=== PATIENT | male | born 1985 | race Caucasian/White ===

== ENCOUNTER 2017-06-26 08:31 | Emergency (ER) | END 2017-06-26 12:50 | disposition home or self-care (01) ==

== ENCOUNTER 2018-08-12 08:17 | Inpatient (IN) | payer MEDICAID ==
[2018-08-12] VITALS (19 sets, daily range): BP systolic 104–134; BP diastolic 58–89; PULSE 67–98; RESP 16–25; Ht 167.6 cm; Wt 82.3 kg
[~2018-08-12] VITALS: Ht 167.6 cm; Wt 82.3 kg
[~2018-08-12 08:17] MED LIST: BEN25 PO; HC30CR25 TOP; NO MEDS; PRED20TA PO
[2018-08-12] MEDS ORDERED: KETOROLAC 30 MG INJ IV STA (09:20)
[2018-08-12] MEDS ORDERED: ONDANSETRON 4 MG INJ IV STA (09:20)
[2018-08-12] MEDS ORDERED: FAMOTIDINE 20 MG TAB PO STA (09:20)
--- NOTE | 2018-08-12 09:31 | ERD ---
ER Documentation Chief Complaint Chief Complaint RIGHT LOWER ABD PAIN, VOMITING, ONSET LAST NIGHT HPI 33-year-old male with no significant past medical history or surgical history who presents with complaint of right lower quadrant abdominal pain since 10 PM last night. Abdominal pain associated with several episodes of nonbilious nonbloody vomiting. Abdominal pain localized to right lower quadrant without radiation. Symptoms not worsened or improved with any thing. Reporting anorexia. Patient has not tried any [id number] medications. He ate his typical meal and denies any sick contacts or recent travel. He further denies diarrhea, fever, chills, cough or URI type symptoms. ROS All systems reviewed and are negative except as per history of present illness. Medications Home Meds Active Scripts Diphenhydramine Hcl* (Benadryl*) 25 Mg Cap, 25 MG PO Q6, #30 CAP Prov:TAN MENDOSA PA-C 06/26/17 Hydrocortisone* Topical (Hydrocortisone* Topical) 2.5%-28.3 Gm Cream..g., 1 APPLIC TOP BID, #1 TUB Prov:TAN MENDOSA PA-C 06/26/17 Prednisone* (Prednisone*) 20 Mg Tab, 40 MG PO DAILY for 5 Days, #10 TAB Prov:TAN MENDOSA PA-C 06/26/17 Reported Medications [None] No Conflict Check 01/31/12 [No Meds] No Conflict Check 09/16/10 Allergies Allergies: Coded Allergies: No Known Allergies (Verified Allergy, Mild, 06/26/17) PMhx/Soc History of Surgery: No Anesthesia Reaction: No Hx Neurological Disorder: No Hx Respiratory Disorders: No Hx Cardiac Disorders: No Hx Psychiatric Problems: No Hx Miscellaneous Medical Probl: Yes (FATTY LIVER) Hx Alcohol Use: No Hx Substance Use: No Hx Tobacco Use: No Physical Exam Vitals Vital Signs Date Temp Pulse Resp B/P (MAP) Pulse Ox O2 O2 Flow FiO2 Time Delivery Rate 08/12/18 98.3 71 17 145/76 100 08:23 (99) Physical Exam Const: No acute distress Neck: Full range of motion. No meningismus. Resp: Clear to auscultation bilaterally Cardio: Regular rate and rhythm, no murmurs Abd: Soft, tenderness to deep palpation to RLQ, no rebound or guarding Skin: No petechiae or rashes Back: No midline or flank tenderness Ext: No cyanosis, or edema Neur: Awake and alert Psych: Normal Mood and Affect Result Diagram: 08/12/1835 08/12/18 0935 Results 24 hrs Laboratory Tests Test 08/12/18 09:35 White Blood Count 13.4 10^3/ul Red Blood Count 6.33 10^6/ul Hemoglobin 16.2 g/dl Hematocrit 49.6 % Mean Corpuscular Volume 78.4 fl Mean Corpuscular Hemoglobin 25.6 pg Mean Corpuscular Hemoglobin Concent 32.7 g/dl Red Cell Distribution Width 13.4 % Platelet Count 308 10^3/UL Mean Platelet Volume 10.5 fl Immature Granulocytes % 0.400 % Neutrophils % 81.3 % Lymphocytes % 10.5 % Monocytes % 7.2 % Eosinophils % 0.3 % Basophils % 0.3 % Nucleated Red Blood Cells % 0.0 /100WBC Immature Granulocytes # 0.050 10^3/ul Neutrophils # 10.9 10^3/ul Lymphocytes # 1.4 10^3/ul Monocytes # 1.0 10^3/ul Eosinophils # 0.0 10^3/ul Basophils # 0.0 10^3/ul Nucleated Red Blood Cells # 0.0 10^3/ul Urine Color YELLOW Urine Clarity CLEAR Urine pH 7.0 Urine Specific [place] 1.010 Urine Ketones NEGATIVE mg/dL Urine Nitrite NEGATIVE mg/dL Urine Bilirubin NEGATIVE mg/dL Urine Urobilinogen NEGATIVE mg/dL Urine Leukocyte Esterase NEGATIVE Janis/ul Urine Hemoglobin NEGATIVE mg/dL Urine Glucose NEGATIVE mg/dL Urine Total Protein NEGATIVE mg/dl Sodium Level 141 mmol/L Potassium Level 3.8 mmol/L Chloride Level 103 mmol/L Carbon Dioxide Level 27 mmol/L Anion Gap 11 Blood Urea Nitrogen 15 mg/dl Creatinine 0.78 mg/dl Est Glomerular Filtrat Rate mL/min > 60 mL/min Glucose Level 93 mg/dl Calcium Level 9.6 mg/dl Total Bilirubin 0.5 mg/dl Direct Bilirubin 0.00 mg/dl Indirect Bilirubin 0.5 mg/dl Aspartate Amino Transf (AST/SGOT) 36 IU/L Alanine Aminotransferase (ALT/SGPT) 55 IU/L Alkaline Phosphatase 91 IU/L Total Protein 8.2 g/dl Albumin 4.7 g/dl Globulin 3.50 g/dl Albumin/Globulin Ratio 1.34 Lipase 51 U/L Current Medications Medications Dose Sig/Lyle Start Time Status Last (Trade) Ordered Route PRN Stop Time Admin Dose Reason Admin Ondansetron 4 mg ONCE STAT 08/12/18 DC 08/12/18 HCl (Zofran IV 09:20 08/12/18 09:40 Inj) 09:27 Famotidine 20 mg ONCE STAT 08/12/18 DC 08/12/18 (Pepcid) PO 09:20 08/12/18 09:40 09:27 Ketorolac 30 mg ONCE STAT 08/12/18 DC 08/12/18 Tromethamine IV 09:20 08/12/18 09:41 (Toradol) 09:28 Procedures/MDM ER attending note: Patient was seen concurrently with the PA staff. Briefly, this is a 33-year-old healthy male who presents with right lower quadrant abdominal pain, nausea, vomiting and anorexia. Initial evaluation showed right lower quadrant tenderness over McBurney's point but no evidence of diffuse peritonitis. Diagnostic evaluation including a CT scan demonstrated evidence of appendicitis. The hospitalist group will be notified for admission and a surgical consultation will be obtained. Patient will be started on antibiotics and kept n.p.o. and patient will be admitted to the hospital. Departure Diagnosis: Primary Impression: Appendicitis Condition: NAYELI Pereyra PA-C Aug 12, 2018 09:31 KELLIE LUTZ Aug 12, 2018 10:30
[2018-08-12] MEDS ORDERED: ACETAMINOPHEN 325 MG TAB PO PRN (11:30)
[2018-08-12] MEDS ORDERED: HYDROCODONE/APAP (5/325) TAB PO PRN (11:30)
[2018-08-12] MEDS ORDERED: NACL 0.9% 3 ML SYG IV SCH (11:30)
[2018-08-12] MEDS ORDERED: ONDANSETRON 4 MG INJ IV PRN ×2 (11:30→21:00)
[2018-08-12] MEDS: DEXTROSE 5%-0.45% NACL 1,000 ML IV SCH ×2 (11:34→22:01)
--- NOTE | 2018-08-12 12:32 | HP ---
Date/Time of Note Date/Time of Note DATE: 08/12/18 TIME: 12:22 Assessment/Plan VTE Prophylaxis SCD applied (from Ns): Yes Pharmacological prophylaxis: NA/contraindicated Pharm contraindication: surgical contra Assessment/Plan Assessment/Plan 1. Acute appendicitis - CT results reviewed which are consistent with acute appendicitis - will keep NPO and continue on IV fluids - empiric antibiotics on board - pain control - patient is medically stable to proceed with surgical intervention - Surgery consultation placed by ED physician 2. Leukocytosis - secondary to #1 3. Diet - NPO 4. Disposition - Admit to med/surg for treatment of acute appendicitis Result Diagram: 08/12/18 0935 08/12/18 0935 Results 24hrs Laboratory Tests Test 08/12/18 09:35 White Blood Count 13.4 H Red Blood Count 6.33 H Hemoglobin 16.2 Hematocrit 49.6 Mean Corpuscular Volume 78.4 L Mean Corpuscular Hemoglobin 25.6 L Mean Corpuscular Hemoglobin Concent 32.7 Red Cell Distribution Width 13.4 Platelet Count 308 Mean Platelet Volume 10.5 H Immature Granulocytes % 0.400 Neutrophils % 81.3 H Lymphocytes % 10.5 L Monocytes % 7.2 Eosinophils % 0.3 Basophils % 0.3 Nucleated Red Blood Cells % 0.0 Immature Granulocytes # 0.050 H Neutrophils # 10.9 H Lymphocytes # 1.4 Monocytes # 1.0 H Eosinophils # 0.0 Basophils # 0.0 Nucleated Red Blood Cells # 0.0 Urine Color YELLOW Urine Clarity CLEAR Urine pH 7.0 Urine Specific [place] 1.010 Urine Ketones NEGATIVE Urine Nitrite NEGATIVE Urine Bilirubin NEGATIVE Urine Urobilinogen NEGATIVE Urine Leukocyte Esterase NEGATIVE Urine Hemoglobin NEGATIVE Urine Glucose NEGATIVE Urine Total Protein NEGATIVE Sodium Level 141 Potassium Level 3.8 Chloride Level 103 Carbon Dioxide Level 27 Anion Gap 11 Blood Urea Nitrogen 15 Creatinine 0.78 Est Glomerular Filtrat Rate mL/min > 60 Glucose Level 93 Calcium Level 9.6 Total Bilirubin 0.5 Direct Bilirubin 0.00 Indirect Bilirubin 0.5 Aspartate Amino Transf (AST/SGOT) 36 Alanine Aminotransferase (ALT/SGPT) 55 Alkaline Phosphatase 91 Total Protein 8.2 H Albumin 4.7 Globulin 3.50 H Albumin/Globulin Ratio 1.34 Lipase 51 HPI/ROS Admit Date/Time Admit Date/Time Aug 12, 2018 at 10:30 Hx of Present Illness 33 yo M with no significantly past medical history presented to ED secondary to worsening right lower quadrant abdominal pain since last night. Patient states he ate dinner at 8pm then started experiencing severe pain with associated nonbilious vomiting around 10pm. Nothing makes the pain better or worse. Patient denies any radiation, nausea, dizziness, chest pain, shortness of breath, constipation or diarrhea. He denies any sick contact or recent travel. Denies any alcohol or tobacco use. ROS All 12 systems reviewed and pertinent positives as per HPI. All others negative. Constitutional: No chills, No fatigue, No nausea ENT: No congestion Respiratory: No cough, No shortness of breath, No sputum, No wheezing Cardiovascular: No chest pain, No lightheadedness, No palpitations Gastrointestinal: pain, vomiting; No constipation, No diarrhea, No nausea Genitourinary: no complaints Musculoskeletal: No back pain Skin: No bruising, No erythema, No laceration, No rash Neurologic: No confusion, No focal-weakness, No syncope Endocrine: no complaints Lymphatic: no complaints Psychological: nl mood/affect Immunologic: no complaints PMH/Family/Social Past Medical History Medical History: no pertinent history Medications Current Medications Dextrose/Sodium Chloride 1,000 ml @ 100 mls/hr Q10H IV Last administered on 08/12/18at 11:34; Admin Dose 100 MLS/HR; Start 08/12/18 at 11:20 IV Flush (NS 3 ml) 3 ml PER PROTOCOL IV ; Start 08/12/18 at 11:30 Ondansetron HCl (Zofran Inj) 4 mg Q6H PRN IV NAUSEA/VOMITING; Start 08/12/18 at 11:30 Acetaminophen (Tylenol Tab) 650 mg Q6H PRN PO .PAIN 1-3 OR TEMP; Start 08/12/18 at 11:30 Acetaminophen/ Hydrocodone Bitart ([place] (5/325)) 1 tab Q6H PRN PO .MOD PAIN 4- 6; Start 08/12/18 at 11:30 Morphine Sulfate (morphine) 2 mg Q4H PRN IV .SEVERE PAIN 7-10; Start 08/12/18 at 11:30 Famotidine (Pepcid Iv) 20 mg Q12 IV ; Start 08/12/18 at 21:00 Piperacillin Sod/ Tazobactam Sod 100 ml @ 200 mls/hr Q8 IVPB ; Start 08/12/18 at 14:00 Coded Allergies: No Known Allergies (Verified Allergy, Mild, 06/26/17) Past Surgical History Past Surgical Hx: no surgical history Family History Significant Family History: no pertinent family hx Social History Alcohol Use: none Smoking Status: Never smoker Drug Use: none Exam/Review of Systems Vital Signs Vitals Vital Signs Date Temp Pulse Resp B/P (MAP) Pulse Ox O2 O2 Flow FiO2 Time Delivery Rate 08/12/18 98.2 77 16 108/60 95 Room Air 11:43 (76) Exam Exam General: Patient is laying in bed and answers questions. no acute distress Head: Normocephalic atraumatic Eyes: EOMI, pupils reactive to light Neck: Supple, nontender, midline Respiratory: Clear to auscultation bilaterally. no wheezing or rhonchi Cardiovascular: S1, S2, regular rate and rhythm, no obvious murmurs Gastrointestinal: soft, tender RLQ palpation, nondistended, bowel sounds heard. mild guarding RLQ Neurological: Moves all extremities spontaneously. no focal deficits. motor and sensory intact Skin: No new skin lesions Additional Comments No home medications PROCEDURE: CT Abdomen and Pelvis without contrast. CLINICAL INDICATION: Right-sided abdominal pain TECHNIQUE: CT scan of the abdomen and pelvis without contrast was performed on a multi-detector high-resolution CT scanner. Coronal and sagittal reformatted images obtained from the axial source images. Images were reviewed on a high- resolution PACS workstation. Exam CTDI 10.20 mGy Exam DLP 613.93 mGy-cm DICOM images are available. One or more of the following dose reduction techniques were utilized: 1.) Automated exposure control 2.) Adjustment of the mA +/- kV according to patient's size 3.) Use of iterative reconstruction technique. COMPARISON: None FINDINGS: CT abdomen: LOWER THORAX: Lung bases are clear. LIVER AND GALLBLADDER: No abnormal findings. SPLEEN: Normal. PANCREAS: Normal. ADRENAL GLANDS: Normal. KIDNEYS: Kidneys are symmetric in size and morphology. No hydronephrosis or visible renal calculus. Bilateral ureters are unremarkable. VASCULATURE: Abdominal aorta is normal in caliber. LYMPH NODES: No significant retroperitoneal or mesenteric lymphadenopathy. BOWEL AND MESENTERY: The appendix is filled with fluid and measures up to 8 mm diameter. Trace stranding in the adjacent mesentery. No extraluminal gas or evidence of perforation. CT pelvis: Urinary bladder is unremarkable. There is no significant pelvic free fluid. No evidence of lymphadenopathy. Bones: Regional bones and superficial soft tissues are grossly unremarkable for age. IMPRESSION: Above findings are consistent with acute appendicitis. No evidence of perforation. Results called to JAN Aguilera at 10:19 am on 08/12/2018. RPTAT: [facility] Physician Raúl Date Time Electronically viewed and signed by Physician Raúl on 08/12/2018 10:21 DANIELLA JOSÉ MD Aug 12, 2018 12:32
[2018-08-12] MEDS: PIPER-TAZO 3.375 GM IV (PMX) 100 ML IVPB SCH ×2 (14:22→21:30)
[2018-08-12] MEDS ORDERED: MIDAZOLAM 1 MG/ML 2 ML INJ ONE (17:28)
[2018-08-12] MEDS ORDERED: ROCURONIUM 50 MG INJ ONE (17:28)
[2018-08-12] MEDS ORDERED: PROPOFOL 20 ML ONE (17:28)
[2018-08-12] MEDS ORDERED: CEFAZOLIN 1 GM INJ ONE (17:28)
[2018-08-12] MEDS ORDERED: ROPIVACAINE 0.5 % 30 ML VIAL ONE (17:29)
--- NOTE | 2018-08-12 18:02 | PREAC ---
Date/Time of Note Date/Time of Note DATE: 08/12/18 TIME: 18:01 Anesthesia Eval and Record Evaluation Time Pre-Procedure Interview DATE: 08/12/18 TIME: 18:00 Age 33 Sex male NPO: 8 hrs Preoperative diagnosis Cholelithiasis Planned procedure Laparoscopic Cholecystectomy Past Medical History Past Medical History: None Surgery & Anesthesia Issues No known issue Meds Anticoagulation: No Beta Keron within 24 hr: No Reason Beta Keron not given: Pt. not on B-Keron Active Scripts Diphenhydramine Hcl* (Benadryl*) 25 Mg Cap, 25 MG PO Q6, #30 CAP Prov:TAN MENDOSA PA-C 06/26/17 Hydrocortisone* Topical (Hydrocortisone* Topical) 2.5%-28.3 Gm Cream..g., 1 APPLIC TOP BID, #1 TUB Prov:TAN MENDOSA PA-C 06/26/17 Prednisone* (Prednisone*) 20 Mg Tab, 40 MG PO DAILY for 5 Days, #10 TAB Prov:TAN MENDOSA PA-C 06/26/17 Reported Medications [None] No Conflict Check 01/31/12 [No Meds] No Conflict Check 09/16/10 Current Medications Dextrose/Sodium Chloride 1,000 ml @ 100 mls/hr Q10H IV Last administered on 08/12/18at 11:34; Admin Dose 100 MLS/HR; Start 08/12/18 at 11:20 IV Flush (NS 3 ml) 3 ml PER PROTOCOL IV ; Start 08/12/18 at 11:30 Ondansetron HCl (Zofran Inj) 4 mg Q6H PRN IV NAUSEA/VOMITING; Start 08/12/18 at 11:30 Acetaminophen (Tylenol Tab) 650 mg Q6H PRN PO .PAIN 1-3 OR TEMP; Start 08/12/18 at 11:30 Acetaminophen/ Hydrocodone Bitart ([place] (5/325)) 1 tab Q6H PRN PO .MOD PAIN 4- 6; Start 08/12/18 at 11:30 Morphine Sulfate (morphine) 2 mg Q4H PRN IV .SEVERE PAIN 7-10; Start 08/12/18 at 11:30 Famotidine (Pepcid Iv) 20 mg Q12 IV ; Start 08/12/18 at 21:00 Piperacillin Sod/ Tazobactam Sod 100 ml @ 200 mls/hr Q8 IVPB Last administered on 08/12/18at 14:22; Admin Dose 200 MLS/HR; Start 08/12/18 at 14:00 Meds reviewed: Yes Allergies Coded Allergies: No Known Allergies (Verified Allergy, Mild, 06/26/17) Allergies Reviewed: Yes Labs/Studies Labs Reviewed: Reviewed by anesthesiologist Result Diagram: 08/12/18 0935 08/12/18 0935 Laboratory Tests 08/12/18 09:35 test: N/A Studies: ECG (n/a), CXR (n/a) Pre-procedure Exam Last vitals Vital Signs Date Temp Pulse Resp B/P (MAP) Pulse Ox O2 O2 Flow FiO2 Time Delivery Rate 08/12/18 98.2 77 16 108/60 95 Room Air 11:43 (76) Airway: Adequate mouth opening, Adequate thyromental dist Mallampati: Mallampati II Teeth: Normal Lung: Normal Heart: Normal ASA Physical Status ASA physical status: 2 Emergency: None Planned Anesthetic General/MAC: ETT Nerve block: TAP (bilateral) Planned Pain Management Single shot nerve block, Parenteral pain med Pre-operative Attestations Prior to commencing anesthesia and surgery, the patient was re-evaluated, there was verification of: *The patient's identity *The results of appropriate recent lab work and preoperative vital signs *The above evaluation not changing prior to induction *Anesthetic plan, risk benefits, alternative and complications discussed with patient/family; questions answered; patient/family understands, accepts and wishes to proceed. JESSICA LAUREN MD Aug 12, 2018 18:02
--- NOTE | 2018-08-12 19:48 | CONS ---
Assessment/Plan Assessment/Plan Hospital Course (Demo Recall) Admitted, CT + acute appendicitis, Antibiotics received Assessment/Plan (Daily) 33 year old male with acute appendicitis - Plan for lap appendectomy, IV antibx, General anesthesia Risk and Benefit and alternatives discussed with the patient Consultation Date/Type/Reason Admit Date/Time Aug 12, 2018 at 10:30 Type of Consult Surgical Reason for Consultation Evaluation of acute abdominal pain Date/Time of Note DATE: 08/12/18 TIME: 19:42 Hx of Present Illness 33 yo M with no significantly past medical history presented to ED secondary to worsening right lower quadrant abdominal pain since last night. Patient states he ate dinner at 8pm then started experiencing severe pain with associated nonbilious vomiting around 10pm. Nothing makes the pain better or worse. Patient denies any radiation, nausea, dizziness, chest pain, shortness of breath, constipation or diarrhea. He denies any sick contact or recent travel. Denies any alcohol or tobacco use. ROS All 12 systems reviewed and pertinent positives as per HPI. All others negative. Constitutional: No chills, No fatigue, No nausea ENT: No congestion Respiratory: No cough, No shortness of breath, No sputum, No wheezing Cardiovascular: No chest pain, No lightheadedness, No palpitations Gastrointestinal: pain, vomiting; No constipation, No diarrhea, No nausea Genitourinary: no complaints Musculoskeletal: No back pain Skin: No bruising, No erythema, No laceration, No rash Neurologic: No confusion, No focal-weakness, No syncope Endocrine: no complaints Lymphatic: no complaints Psychological: nl mood/affect Immunologic: no complaints Past Medical History Medical History: no pertinent history Home Meds Active Scripts Diphenhydramine Hcl* (Benadryl*) 25 Mg Cap, 25 MG PO Q6, #30 CAP Prov:TAN MENDOSA PA-C 06/26/17 Hydrocortisone* Topical (Hydrocortisone* Topical) 2.5%-28.3 Gm Cream..g., 1 APPLIC TOP BID, #1 TUB Prov:TAN MENDOSA PA-C 06/26/17 Prednisone* (Prednisone*) 20 Mg Tab, 40 MG PO DAILY for 5 Days, #10 TAB Prov:TAN MENDOSA PA-C 06/26/17 Reported Medications [None] No Conflict Check 01/31/12 [No Meds] No Conflict Check 09/16/10 Medications Current Medications Dextrose/Sodium Chloride 1,000 ml @ 100 mls/hr Q10H IV Last administered on 08/12/18at 11:34; Admin Dose 100 MLS/HR; Start 08/12/18 at 11:20 IV Flush (NS 3 ml) 3 ml PER PROTOCOL IV ; Start 08/12/18 at 11:30 Ondansetron HCl (Zofran Inj) 4 mg Q6H PRN IV NAUSEA/VOMITING; Start 08/12/18 at 11:30 Acetaminophen (Tylenol Tab) 650 mg Q6H PRN PO .PAIN 1-3 OR TEMP; Start 08/12/18 at 11:30 Acetaminophen/ Hydrocodone Bitart ([place] (5/325)) 1 tab Q6H PRN PO .MOD PAIN 4- 6; Start 08/12/18 at 11:30 Morphine Sulfate (morphine) 2 mg Q4H PRN IV .SEVERE PAIN 7-10; Start 08/12/18 at 11:30 Famotidine (Pepcid Iv) 20 mg Q12 IV ; Start 08/12/18 at 21:00 Piperacillin Sod/ Tazobactam Sod 100 ml @ 200 mls/hr Q8 IVPB Last administered on 08/12/18at 14:22; Admin Dose 200 MLS/HR; Start 08/12/18 at 14:00 Allergies: Coded Allergies: No Known Allergies (Verified Allergy, Mild, 06/26/17) Past Surgical History Past Surgical Hx: no surgical history Social History Alcohol Use: none Smoking Status: Never smoker Drug Use: none Exam/Review of Systems Exam Vitals Vital Signs Date Temp Pulse Resp B/P (MAP) Pulse Ox O2 O2 Flow FiO2 Time Delivery Rate 08/12/18 98.2 77 16 108/60 95 Room Air 11:43 (76) Eyes: No nl sclera, No icteric, No fundi, disc, No other Neck: No supple, No non-tender, No jvd, No bruits, No masses, No thyromegaly, No nuchal rigidity, No other Respiratory: No clear to auscultation, No normal air movement, No congested cough, No crackles/rales, No diminished breath sounds, No intercostal retraction , No labored breathing, No respirations, No tactile fremitus, No wheezing, No other Genitourinary - Male: No nl penis, No nl scrotum, No CVA tenderness, No discharge, No other Musculoskeletal: No nl extremities to inspection, No nl gait and stance, No joint tenderness, No muscle tone, No muscle weakness, No range of motion, No spine non-tender, No swelling, No other Extremities: No normal pulses, No calf tenderness, No cyanosis, No clubbing, No edema, No pitting pedal edema, No palpable cord, No tenderness, No other Neurological: No APPRENTICE PLANT ATTENDANT II-XII intact, No nl mental status, No nl speech, No nl strength, No confused, No DTR's symmetric, No focal weakness, No lethargic, No numbness, No reflexes, No unresponsive, No other Skin: No nl turgor, No rash or lesions, No diaphoresis, No ecchymosis, No laceration, No puncture, No other Lymph: No nl lymph nodes, No enlarged, No nontender, No other Results Result Diagram: 08/12/18 0935 08/12/18 0935 Results 24hrs Laboratory Tests Test 08/12/18 09:35 White Blood Count 13.4 H Red Blood Count 6.33 H Hemoglobin 16.2 Hematocrit 49.6 Mean Corpuscular Volume 78.4 L Mean Corpuscular Hemoglobin 25.6 L Mean Corpuscular Hemoglobin Concent 32.7 Red Cell Distribution Width 13.4 Platelet Count 308 Mean Platelet Volume 10.5 H Immature Granulocytes % 0.400 Neutrophils % 81.3 H Lymphocytes % 10.5 L Monocytes % 7.2 Eosinophils % 0.3 Basophils % 0.3 Nucleated Red Blood Cells % 0.0 Immature Granulocytes # 0.050 H Neutrophils # 10.9 H Lymphocytes # 1.4 Monocytes # 1.0 H Eosinophils # 0.0 Basophils # 0.0 Nucleated Red Blood Cells # 0.0 Urine Color YELLOW Urine Clarity CLEAR Urine pH 7.0 Urine Specific [place] 1.010 Urine Ketones NEGATIVE Urine Nitrite NEGATIVE Urine Bilirubin NEGATIVE Urine Urobilinogen NEGATIVE Urine Leukocyte Esterase NEGATIVE Urine Hemoglobin NEGATIVE Urine Glucose NEGATIVE Urine Total Protein NEGATIVE Sodium Level 141 Potassium Level 3.8 Chloride Level 103 Carbon Dioxide Level 27 Anion Gap 11 Blood Urea Nitrogen 15 Creatinine 0.78 Est Glomerular Filtrat Rate mL/min > 60 Glucose Level 93 Calcium Level 9.6 Total Bilirubin 0.5 Direct Bilirubin 0.00 Indirect Bilirubin 0.5 Aspartate Amino Transf (AST/SGOT) 36 Alanine Aminotransferase (ALT/SGPT) 55 Alkaline Phosphatase 91 Total Protein 8.2 H Albumin 4.7 Globulin 3.50 H Albumin/Globulin Ratio 1.34 Lipase 51 Medications Medication Current Medications Dextrose/Sodium Chloride 1,000 ml @ 100 mls/hr Q10H IV Last administered on 08/12/18at 11:34; Admin Dose 100 MLS/HR; Start 08/12/18 at 11:20 IV Flush (NS 3 ml) 3 ml PER PROTOCOL IV ; Start 08/12/18 at 11:30 Ondansetron HCl (Zofran Inj) 4 mg Q6H PRN IV NAUSEA/VOMITING; Start 08/12/18 at 11:30 Acetaminophen (Tylenol Tab) 650 mg Q6H PRN PO .PAIN 1-3 OR TEMP; Start 08/12/18 at 11:30 Acetaminophen/ Hydrocodone Bitart ([place] (5/325)) 1 tab Q6H PRN PO .MOD PAIN 4- 6; Start 08/12/18 at 11:30 Morphine Sulfate (morphine) 2 mg Q4H PRN IV .SEVERE PAIN 7-10; Start 08/12/18 at 11:30 Famotidine (Pepcid Iv) 20 mg Q12 IV ; Start 08/12/18 at 21:00 Piperacillin Sod/ Tazobactam Sod 100 ml @ 200 mls/hr Q8 IVPB Last administered on 08/12/18at 14:22; Admin Dose 200 MLS/HR; Start 08/12/18 at 14:00 EDU VIERA MD Aug 12, 2018 19:48
[2018-08-12] MEDS ORDERED: PHENYLephrine (100 MCG/ML) 5ML SYG ONE (19:56)
[2018-08-12] MEDS ORDERED: METOCLOPRAMIDE 10 MG INJ ONE (20:06)
[2018-08-12] MEDS ORDERED: KETOROLAC 30 MG INJ ONE (20:06)
[2018-08-12] MEDS ORDERED: DEXAMETHASONE 4 MG/ML 5 ML INJ ONE (20:06)
[2018-08-12] MEDS ORDERED: ONDANSETRON 4 MG INJ ONE (20:06)
[2018-08-12] MEDS ORDERED: SUGAMMADEX SODIUM 200 MG/2 ML VIAL IV ONE (20:17)
--- NOTE | 2018-08-12 20:40 | PAC ---
Date/Time of Note Date/Time of Note DATE: 08/12/18 TIME: 20:39 Post-Anesthesia Notes Post-Anesthesia Note Last documented vital signs Vital Signs Date Temp Pulse Resp B/P (MAP) Pulse Ox O2 O2 Flow FiO2 Time Delivery Rate 08/12/18 98.2 77 16 108/60 99 Face Mask 8 l 20:43 (76) Activity: WNL Respiratory function: WNL Cardiovascular function: WNL Mental status: Baseline Pain reasonably controlled: Yes Hydration appropriate: Yes Nausea/Vomiting absent: Yes JESSICA LAUREN MD Aug 12, 2018 20:40
[2018-08-12] MEDS ORDERED: MEPERIDINE 25 MG INJ ONE (20:41)
--- NOTE | 2018-08-12 20:43 | OPR ---
Date/Time of Note Date/Time of Note DATE: 08/12/18 TIME: 20:27 Operative Report Procedure Date: Aug 12, 2018 Preoperative Diagnosis Acute appendicitis Postoperative Diagnosis Acute appendicitis Operation/Procedure Performed Laparoscopic appendectomy Surgeon Raymond [place] Relief Operator none Anesthesia Type: general Estimated Blood Loss: minimal Transfusion none Specimen Appendix Grafts/Implants none Complications none Indications Acute appendicitis Procedure Description Please see dictated report RAYMOND CANADA MD Aug 12, 2018 20:41
[2018-08-12] MEDS ORDERED: hydrALAzine 20 MG INJ IV PRN (21:00)
[2018-08-12] MEDS ORDERED: MEPERIDINE 25 MG INJ IV PRN (21:00)
[2018-08-12] MEDS ORDERED: FENTAnyl 50 MCG/ML VIAL IV PRN ×2 (21:00)
[2018-08-12] MEDS ORDERED: EPHEDrine SULFATE 50 MG/5 ML SYG IV PRN (21:00)
[2018-08-12] MEDS ORDERED: HYDROmorphONE 1 MG/5 ML IV SYRINGE IV PRN ×3 (21:00)
[2018-08-12] MEDS ORDERED: METOCLOPRAMIDE 10 MG INJ IV PRN (21:00)
[2018-08-12] MEDS ORDERED: LABETALOL HCL 20MG INJ IV PRN (21:00)
[2018-08-12] MEDS ORDERED: DIPHENHYDRAMINE 50 MG INJ IV PRN (21:00)
[2018-08-12] MEDS: FAMOTIDINE 20 MG INJ IV SCH (22:01)
--- NOTE | 2018-08-12 22:22 | OPR ---
DATE OF OPERATION: 08/12/2018 PREOPERATIVE DIAGNOSIS: Acute appendicitis. POSTOPERATIVE DIAGNOSIS: Acute appendicitis. PROCEDURE PERFORMED: Laparoscopic appendectomy. COMPLICATIONS: None. ESTIMATED BLOOD LOSS: Minimal. Additional procedure performed by anesthesia is a TAP block. ANESTHESIOLOGIST: Ty Collins MD DRAINS: None. SPECIMEN: Appendix. ESTIMATED BLOOD LOSS: Minimal. HISTORY: The patient is a 33-year-old male with acute onset of abdominal pain 1 day duration. The p atient has no significant pertinent medical history. A CT was performed that demonstrated acute appe ndicitis. Additional laboratory examination confirmed with elevated white count. The patient was co nsented and brought to the OR for definitive operation. Risks of bleeding, infection and risk of bow el perforation was described to the patient. OPERATIVE NOTE: The patient was brought to OR and placed in supine position. Sequential compression devices were applied to bilateral lower extremities. Preoperative antibiotic had been administered. The patient was sedated and intubated. Anterior abdominal wall was prepped and draped in usual mary gical fashion. A proper timeout was completed by the operating room team. A Veress needle insufflat ion was performed through a left upper quadrant stab incision site and a water drop test confirming V eress needle positioning. Once the abdomen was insufflated, we proceeded to place our trocars. A 5 mm 0-degree scope was used to perform an Optiview entry into the peritoneal cavity, visualizing each layer of the anterior abdominal wall entering the peritoneal cavity. Once inside the peritoneal cavi ty, we placed additional trocars in 3 locations, one in the periumbilical tissue at the level of the umbilicus, a 12 mm trocar was placed, a 5 mm trocar was placed in the suprapubic and a 5 mm trocar wa s placed in the right upper quadrant. The patient was airplaned away from the surgeon towards the le ft side and placed in Trendelenburg position. The appendix was quickly exposed. The appendix base i nitially was located and hook cautery was used to expose that the appendix base. One firing of Endo- JOE was performed. At this time, I realized that the appendix was longer. Therefore, an additional window was opened and a second firing of the appendix was performed to divide the appendix. The mese ntery was also divided with a vascular load for complete amputation of the appendix with 3 firings of the Ethicon 45 stapler. Once the stapling base was exposed, we proceeded to visualize the base. Th ere was no evidence of unusual bleeding and the appendix was placed in the Endo fascial bag. It shou ld be noted that at the time of removal of the appendix, the appendix fell out of the endobag due to malfunction of the Endobag. I retrieved the appendix using loupe forceps. Once the appendix was rem feli, the area was irrigated. The appendix was intact and the fascia was closed with endo fascial cl osure device and 0 Vicryl suture. The skin was closed with interrupted 3-0 Monocryl. The patient wa s sent to the PACU in stable condition. Dictated By: EDU BENTON Conf#: [id number] DID#: [id number] CC: DANIELLA JOSÉ MD;*End*
[2018-08-12] MEDS: morphine 2 MG INJ IV PRN (22:36)
[2018-08-13 01:50] VITALS: BP 115/63; PULSE 95; RESP 18
[2018-08-13] MEDS: PIPER-TAZO 3.375 GM IV (PMX) 100 ML IVPB SCH ×2 (06:11→13:58)
[2018-08-13] MEDS: DEXTROSE 5%-0.45% NACL 1,000 ML IV SCH (08:14)
[2018-08-13] MEDS: FAMOTIDINE 20 MG INJ IV SCH (08:14)
[2018-08-13 08:34] VITALS: BP 114/64; PULSE 91; RESP 18
--- NOTE | 2018-08-13 09:01 | PN ---
Date/Time of Note Date/Time of Note DATE: 08/13/18 TIME: 09:01 Assessment/Plan VTE Prophylaxis Risk score (from [facility])>0 risk: 5 SCD applied (from [facility]): Yes Pharmacological prophylaxis: NA/contraindicated Pharm contraindication: surgical contra Lines/Catheters [facility] (from [facility] Peripheral IV Urinary Cath still in place: No Assessment/Plan Assessment/Plan 1. Acute appendicitis s/p lap appy - General Surgery consultation appreciated. s/p lap appy 08/12/18 - Tolerating PO intake and passing gas. Denies any acute issues - pain control - advance diet as tolerated 2. Leukocytosis - resolved 3. Disposition - If continues to tolerate PO intake and cleared by Surgeon, will d/c home today Result Diagram: 08/13/18 0539 08/13/18 0539 Results 24hrs Laboratory Tests Test 08/12/18 09:35 08/12/18 21:19 08/13/18 05:39 White Blood Count 13.4 H 9.4 # 6.0 # Red Blood Count 6.33 H 5.39 5.51 Hemoglobin 16.2 14.1 14.1 Hematocrit 49.6 43.7 43.6 Mean Corpuscular Volume 78.4 L 81.1 L 79.1 L Mean Corpuscular Hemoglobin 25.6 L 26.2 L 25.6 L Mean Corpuscular Hemoglobin Concent 32.7 32.3 32.3 Red Cell Distribution Width 13.4 13.3 13.2 Platelet Count 308 273 304 Mean Platelet Volume 10.5 H 9.8 10.4 Immature Granulocytes % 0.400 0.500 H 0.300 Neutrophils % 81.3 H 72.3 88.1 H Lymphocytes % 10.5 L 18.3 10.3 L Monocytes % 7.2 7.1 1.3 Eosinophils % 0.3 1.5 0.0 Basophils % 0.3 0.3 0.0 Nucleated Red Blood Cells % 0.0 0.0 0.0 Immature Granulocytes # 0.050 H 0.050 H 0.020 Neutrophils # 10.9 H 6.8 5.3 Lymphocytes # 1.4 1.7 0.6 L Monocytes # 1.0 H 0.7 0.1 L Eosinophils # 0.0 0.1 0.0 Basophils # 0.0 0.0 0.0 Nucleated Red Blood Cells # 0.0 0.0 0.0 Urine Color YELLOW Urine Clarity CLEAR Urine pH 7.0 Urine Specific [place] 1.010 Urine Ketones NEGATIVE Urine Nitrite NEGATIVE Urine Bilirubin NEGATIVE Urine Urobilinogen NEGATIVE Urine Leukocyte Esterase NEGATIVE Urine Hemoglobin NEGATIVE Urine Glucose NEGATIVE Urine Total Protein NEGATIVE Sodium Level 141 139 139 Potassium Level 3.8 3.5 4.3 Chloride Level 103 104 106 Carbon Dioxide Level 27 26 24 Anion Gap 11 9 9 Blood Urea Nitrogen 15 13 11 Creatinine 0.78 1.01 0.87 Est Glomerular Filtrat Rate mL/min > 60 > 60 > 60 Glucose Level 93 101 153 Calcium Level 9.6 8.6 8.8 Total Bilirubin 0.5 0.4 Direct Bilirubin 0.00 0.00 Indirect Bilirubin 0.5 0.4 Aspartate Amino Transf (AST/SGOT) 36 26 Alanine Aminotransferase (ALT/SGPT) 55 42 Alkaline Phosphatase 91 58 Total Protein 8.2 H 6.8 # Albumin 4.7 3.7 # Globulin 3.50 H 3.10 Albumin/Globulin Ratio 1.34 1.19 Lipase 51 Magnesium Level 1.9 Subjective 24 Hr Interval Summary Free Text/Dictation Patient states pain is mild and tolerating liquid intake. No acute overnight events. Denies any fevers, nausea, and vomiting. Passing gas this am. Exam/Review of Systems Exam Vitals Vital Signs Date Temp Pulse Resp B/P (MAP) Pulse Ox O2 O2 Flow FiO2 Time Delivery Rate 08/13/18 98.3 91 18 114/64 91 08:34 (81) 08/12/18 Room Air 21:37 Intake and Output 08/12/18 08/12/18 08/13/18 1515:00 23:00 07:00 IntakeIntake Total 100 ml 1700 ml 900 ml OutputOutput Total 10 ml BalanceBalance 100 ml 1690 ml 900 ml Exam General: Patient is laying in bed and answers questions. no acute distress Neck: Supple Respiratory: Clear to auscultation bilaterally. no wheezing or rhonchi Cardiovascular: S1, S2, regular rate and rhythm, no obvious murmurs Gastrointestinal: soft, nontender, nondistended, bowel sounds heard. Skin: No new skin lesions. surgical incisions noted, clean and dry Results Results 24hrs Laboratory Tests Test 08/12/18 09:35 08/12/18 21:19 08/13/18 05:39 White Blood Count 13.4 H 9.4 # 6.0 # Red Blood Count 6.33 H 5.39 5.51 Hemoglobin 16.2 14.1 14.1 Hematocrit 49.6 43.7 43.6 Mean Corpuscular Volume 78.4 L 81.1 L 79.1 L Mean Corpuscular Hemoglobin 25.6 L 26.2 L 25.6 L Mean Corpuscular Hemoglobin Concent 32.7 32.3 32.3 Red Cell Distribution Width 13.4 13.3 13.2 Platelet Count 308 273 304 Mean Platelet Volume 10.5 H 9.8 10.4 Immature Granulocytes % 0.400 0.500 H 0.300 Neutrophils % 81.3 H 72.3 88.1 H Lymphocytes % 10.5 L 18.3 10.3 L Monocytes % 7.2 7.1 1.3 Eosinophils % 0.3 1.5 0.0 Basophils % 0.3 0.3 0.0 Nucleated Red Blood Cells % 0.0 0.0 0.0 Immature Granulocytes # 0.050 H 0.050 H 0.020 Neutrophils # 10.9 H 6.8 5.3 Lymphocytes # 1.4 1.7 0.6 L Monocytes # 1.0 H 0.7 0.1 L Eosinophils # 0.0 0.1 0.0 Basophils # 0.0 0.0 0.0 Nucleated Red Blood Cells # 0.0 0.0 0.0 Urine Color YELLOW Urine Clarity CLEAR Urine pH 7.0 Urine Specific [place] 1.010 Urine Ketones NEGATIVE Urine Nitrite NEGATIVE Urine Bilirubin NEGATIVE Urine Urobilinogen NEGATIVE Urine Leukocyte Esterase NEGATIVE Urine Hemoglobin NEGATIVE Urine Glucose NEGATIVE Urine Total Protein NEGATIVE Sodium Level 141 139 139 Potassium Level 3.8 3.5 4.3 Chloride Level 103 104 106 Carbon Dioxide Level 27 26 24 Anion Gap 11 9 9 Blood Urea Nitrogen 15 13 11 Creatinine 0.78 1.01 0.87 Est Glomerular Filtrat Rate mL/min > 60 > 60 > 60 Glucose Level 93 101 153 Calcium Level 9.6 8.6 8.8 Total Bilirubin 0.5 0.4 Direct Bilirubin 0.00 0.00 Indirect Bilirubin 0.5 0.4 Aspartate Amino Transf (AST/SGOT) 36 26 Alanine Aminotransferase (ALT/SGPT) 55 42 Alkaline Phosphatase 91 58 Total Protein 8.2 H 6.8 # Albumin 4.7 3.7 # Globulin 3.50 H 3.10 Albumin/Globulin Ratio 1.34 1.19 Lipase 51 Magnesium Level 1.9 Medications Medication Current Medications Dextrose/Sodium Chloride 1,000 ml @ 100 mls/hr Q10H IV Last administered on 08/13/18 08:14; Admin Dose 100 MLS/HR; Start 08/12/18 at 11:20 IV Flush (NS 3 ml) 3 ml PER PROTOCOL IV ; Start 08/12/18 at 11:30 Ondansetron HCl (Zofran Inj) 4 mg Q6H PRN IV NAUSEA/VOMITING; Start 08/12/18 at 11:30 Acetaminophen (Tylenol Tab) 650 mg Q6H PRN PO .PAIN 1-3 OR TEMP; Start 08/12/18 at 11:30 Acetaminophen/ Hydrocodone Bitart (Harman (5/325)) 1 tab Q6H PRN PO .MOD PAIN 4- 6; Start 08/12/18 at 11:30 Morphine Sulfate (morphine) 2 mg Q4H PRN IV .SEVERE PAIN 7-10 Last administered on 08/12/18at 22:36; Admin Dose 2 MG; Start 08/12/18 at 11:30 Famotidine (Pepcid Iv) 20 mg Q12 IV Last administered on 08/13/18 08:14; Admin Dose 20 MG; Start 08/12/18 at 21:00 Piperacillin Sod/ Tazobactam Sod 100 ml @ 200 mls/hr Q8 IVPB Last administered on 08/13/18 06:11; Admin Dose 200 MLS/HR; Start 08/12/18 at 14:00 DANIELLA JOSÉ MD Aug 13, 2018 09:01
[2018-08-13] MEDS: morphine 2 MG INJ IV PRN (10:59)
[2018-08-13] MEDS ORDERED: HYDR-3601 PO (12:27)
[2018-08-13 13:13] VITALS: BP 121/76; PULSE 90; RESP 18
--- NOTE | 2018-08-13 15:57 | PDOCDIS ---
Discharge Instructions DIAGNOSIS Discharge Diagnosis 1. Acute appendicitis s/p laparoscopic appendectomy CONDITION [id number] Patient Condition: [id number] Stable HOME CARE INSTRUCTIONS: [id number] Diet Instructions: [id number] Regular FOLLOW UP/APPOINTMENTS Follow-up Plan 1. Follow up with primary care in 1 week 2. Avoid heavy lifting of more than 20 lbs for the next 4-6 weeks 3. Keep incision sites clean and dry 4. Avoid submerging yourself in water including bath tubs or Jacuzzis for at least 10 days 5. Take pain medications as needed. Increase hydration and fiber intake while on medications to avoid constipation 6. If experiencing any concerning symptoms, please go to your nearest emergency department 7. No need to follow up with General Surgeon, Dr. Mace, but if you have any concerns feel free to call his office. REFERRALS Other Referrals Raymond Canada MD Specialty: General Surgery [id number] [facility] [address] [place] [address] Office DANIELLA JOSÉ MD Aug 13, 2018 15:57
--- NOTE | 2018-08-13 16:02 | DS ---
Date/Time of Note Date/Time of Note DATE: 08/13/18 TIME: 15:57 Discharge Summary Admission/Discharge Info Admit Date/Time Aug 12, 2018 at 10:30 Discharge Date/Time 08/13/18 Discharge Diagnosis 1. Acute appendicitis s/p laparoscopic appendectomy Patient Condition: Stable Consults General Surgery- Dr. Raymond Canada Procedures 08/12/18 PROCEDURE PERFORMED: Laparoscopic appendectomy. PROCEDURE: CT Abdomen and Pelvis without contrast. CLINICAL INDICATION: Right-sided abdominal pain TECHNIQUE: CT scan of the abdomen and pelvis without contrast was performed on a multi-detector high-resolution CT scanner. Coronal and sagittal reformatted images obtained from the axial source images. Images were reviewed on a high- resolution PACS workstation. Exam CTDI 10.20 mGy Exam DLP 613.93 mGy-cm DICOM images are available. One or more of the following dose reduction techniques were utilized: 1.) Automated exposure control 2.) Adjustment of the mA +/- kV according to patient's size 3.) Use of iterative reconstruction technique. COMPARISON: None FINDINGS: CT abdomen: LOWER THORAX: Lung bases are clear. LIVER AND GALLBLADDER: No abnormal findings. SPLEEN: Normal. PANCREAS: Normal. ADRENAL GLANDS: Normal. KIDNEYS: Kidneys are symmetric in size and morphology. No hydronephrosis or visible renal calculus. Bilateral ureters are unremarkable. VASCULATURE: Abdominal aorta is normal in caliber. LYMPH NODES: No significant retroperitoneal or mesenteric lymphadenopathy. BOWEL AND MESENTERY: The appendix is filled with fluid and measures up to 8 mm diameter. Trace stranding in the adjacent mesentery. No extraluminal gas or evidence of perforation. CT pelvis: Urinary bladder is unremarkable. There is no significant pelvic free fluid. No evidence of lymphadenopathy. Bones: Regional bones and superficial soft tissues are grossly unremarkable for age. IMPRESSION: Above findings are consistent with acute appendicitis. No evidence of perforation. Results called to JAN Aguilera at 10:19 am on 08/12/2018. Hx of Present Illness 33 yo M with no significantly past medical history presented to ED secondary to worsening right lower quadrant abdominal pain since last night. Patient states he ate dinner at 8pm then started experiencing severe pain with associated nonbilious vomiting around 10pm. Nothing makes the pain better or worse. Patient denies any radiation, nausea, dizziness, chest pain, shortness of breath, constipation or diarrhea. He denies any sick contact or recent travel. Denies any alcohol or tobacco use. Hospital Course Patient was admitted for surgical workup and was taken to OR for laparoscopic appendectomy. Patient tolerated operation well without any intraoperative complications. Patient was able to tolerated PO intake and was passing gas. Patients pain was controlled with PO medications and labs remained stable. On day of discharge, patients vitals and physical exam were stable. He was cleared by general surgeon for discharge as well with PRN follow up. Patient was discharged home in good condition. Home Meds Active Scripts Hydrocodone Bit-Acetaminophen (Hydrocodone Bit-APAP) 5-325MG Tablet, 1 TAB PO Q6H PRN for .MOD PAIN 4-6 for 7 Days, #20 TAB Prov:DANIELLA JOSÉ MD 08/13/18 Discontinued Reported Medications [None] No Conflict Check 01/31/12 [No Meds] No Conflict Check 09/16/10 Discontinued Scripts Diphenhydramine Hcl* (Benadryl*) 25 Mg Cap, 25 MG PO Q6, #30 CAP Prov:TAN MENDOSA PA-C 06/26/17 Hydrocortisone* Topical (Hydrocortisone* Topical) 2.5%-28.3 Gm Cream..g., 1 APPLIC TOP BID, #1 TUB Prov:TAN MENDOSA PA-C 06/26/17 Prednisone* (Prednisone*) 20 Mg Tab, 40 MG PO DAILY for 5 Days, #10 TAB Prov:TAN MENDOSA PA-C 06/26/17 Follow-up Plan 1. Follow up with primary care in 1 week 2. Avoid heavy lifting of more than 20 lbs for the next 4-6 weeks 3. Keep incision sites clean and dry 4. Avoid submerging yourself in water including bath tubs or Jacuzzis for at least 10 days 5. Take pain medications as needed. Increase hydration and fiber intake while on medications to avoid constipation 6. If experiencing any concerning symptoms, please go to your nearest emergency department Primary Care Provider Care Physician No Primary Time spent on discharge: > 30 minutes Pending Labs Laboratory Tests Test 08/12/18 21:19 08/13/18 05:39 White Blood Count 9.4 10^3/ul (4.8-10.8) 6.0 10^3/ul (4.8-10.8) Red Blood Count 5.39 10^6/ul (4.70-6.10) 5.51 10^6/ul (4.70-6.10) Hemoglobin 14.1 g/dl (14.0-18.0) 14.1 g/dl (14.0-18.0) Hematocrit 43.7 % (42.0-52.0) 43.6 % (42.0-52.0) Mean Corpuscular Volume 81.1 fl (82.0-101.0) 79.1 fl (82.0-101.0) Mean Corpuscular 26.2 pg (29.0-33.0) 25.6 pg (29.0-33.0) Hemoglobin Mean Corpuscular 32.3 g/dl (32.0-37.0) 32.3 g/dl (32.0-37.0) Hemoglobin Concent Red Cell Distribution 13.3 % (11.5-14.5) 13.2 % (11.5-14.5) Width Platelet Count 273 10^3/UL (140-415) 304 10^3/UL (140-415) Mean Platelet Volume 9.8 fl (7.4-10.4) 10.4 fl (7.4-10.4) Immature Granulocytes % 0.500 % (0.001-0.429) 0.300 % (0.001-0.429) Neutrophils % 72.3 % (39.0-77.0) 88.1 % (39.0-77.0) Lymphocytes % 18.3 % (15.0-51.0) 10.3 % (15.0-51.0) Monocytes % 7.1 % (0.0-11.0) 1.3 % (0.0-11.0) Eosinophils % 1.5 % (0.0-7.0) 0.0 % (0.0-7.0) Basophils % 0.3 % (0.0-2.0) 0.0 % (0.0-2.0) Nucleated Red Blood Cells 0.0 /100WBC (0.0-0.0) 0.0 /100WBC (0.0-0.0) % Immature Granulocytes # 0.050 10^3/ul (0.0-0.031) 0.020 10^3/ul (0.0-0.031) Neutrophils # 6.8 10^3/ul (1.6-7.5) 5.3 10^3/ul (1.6-7.5) Lymphocytes # 1.7 10^3/ul (0.8-2.9) 0.6 10^3/ul (0.8-2.9) Monocytes # 0.7 10^3/ul (0.3-0.9) 0.1 10^3/ul (0.3-0.9) Eosinophils # 0.1 10^3/ul (0.0-0.5) 0.0 10^3/ul (0.0-0.5) Basophils # 0.0 10^3/ul (0.0-0.1) 0.0 10^3/ul (0.0-0.1) Nucleated Red Blood Cells 0.0 10^3/ul (0.0-0.0) 0.0 10^3/ul (0.0-0.0) # Sodium Level 139 mmol/L (135-144) 139 mmol/L (135-144) Potassium Level 3.5 mmol/L (3.5-5.1) 4.3 mmol/L (3.5-5.1) Chloride Level 104 mmol/L (97-110) 106 mmol/L (97-110) Carbon Dioxide Level 26 mmol/L (21-31) 24 mmol/L (21-31) Anion Gap 9 (5-13) 9 (5-13) Blood Urea Nitrogen 13 mg/dl (7-20) 11 mg/dl (7-20) Creatinine 1.01 mg/dl (0.61-1.24) 0.87 mg/dl (0.61-1.24) Est Glomerular Filtrat > 60 mL/min (>60) > 60 mL/min (>60) Rate mL/min Glucose Level 101 mg/dl (70-220) 153 mg/dl (70-220) Calcium Level 8.6 mg/dl (8.4-10.2) 8.8 mg/dl (8.4-10.2) Magnesium Level 1.9 mg/dl (1.7-2.5) Total Bilirubin 0.4 mg/dl (0.2-1.3) Direct Bilirubin 0.00 mg/dl (0.00-0.20) Indirect Bilirubin 0.4 mg/dl (0-1.1) Aspartate Amino 26 IU/L (15-46) Transf (AST/SGOT) Alanine 42 IU/L (13-69) Aminotransferase (ALT/SGPT ) Alkaline Phosphatase 58 IU/L (42-121) Total Protein 6.8 g/dl (6.1-8.1) Albumin 3.7 g/dl (3.3-4.9) Globulin 3.10 g/dl (1.3-3.2) Albumin/Globulin Ratio 1.19 DANIELLA JOSÉ MD Aug 13, 2018 16:02
== END 2018-08-13 17:25 | disposition hospice, home (50) | DRG 343 ==
LOC: FTE 08:17 → 2NE 10:30
PROVIDERS: ADMIT Internal Medicine; ATTEND Internal Medicine
PROC: 0DTJ4ZZ Resection of Appendix, Percutaneous Endoscopic Approach (ICD-10-PCS; principal; 2018-08-12 18:00)
DX: K35.80 Unspecified acute appendicitis (principal)
CPT/HCPCS: 74176; 80048; 80053; 80076; 81003; 83690; 83735; 85025; 88304; J0690; J1100; J1885; J2175; J2250; J2270; J2370; J2405; J2543; J2765; J2795; J3010; J7042

== ENCOUNTER 2018-11-05 00:20 | Emergency (ER) | payer MEDICAID ==
[~2018-11-05] VITALS: Wt 82.1 kg
[~2018-11-05 00:20] MED LIST changes: -BEN25 PO; -HC30CR25 TOP; +HYDR-3601 PO; -NO MEDS; -PRED20TA PO
[2018-11-05] MEDS ORDERED: ASPIRIN 325 MG TAB PO STA (02:32)
[2018-11-05 03:30] VITALS: BP 133/88; PULSE 68; RESP 18
[2018-11-05] MEDS ORDERED: NAPR-985 PO (05:16)
--- NOTE | 2018-11-05 05:16 | ERD ---
ER Documentation Chief Complaint Chief Complaint R sided CP since Sat; 11/16. intermittent, reproducible. HPI 33-year-old male presenting to the emergency department complaining of left- sided chest pain without radiation for the past 6 days. Symptoms are intermittent. He reports associated shortness of breath which is intermittent. Pain is worse with deep inspiration. He took Tylenol at home without it he denies any recent travel or past medical history of PE or DVT. He denies any recent leg pain. States his pain is worse when he lifts heavy weights. No fevers, chills, abdominal pain, or other symptoms reported at this time. ROS All systems reviewed and are negative except as per history of present illness. Medications Home Meds Active Scripts Hydrocodone Bit-Acetaminophen (Hydrocodone Bit-APAP) 5-325MG Tablet, 1 TAB PO Q6H PRN for .MOD PAIN 4-6 for 7 Days, #20 TAB Prov:DANIELLA JOSÉ MD 08/13/18 Allergies Allergies: Coded Allergies: No Known Allergies (Verified Allergy, Mild, 06/26/17) PMhx/Soc History of Surgery: No Anesthesia Reaction: No Hx Neurological Disorder: No Hx Respiratory Disorders: No Hx Cardiac Disorders: No Hx Psychiatric Problems: No Hx Miscellaneous Medical Probl: Yes (fatty liver) Hx Alcohol Use: No Hx Substance Use: No Hx Tobacco Use: No Smoking Status: Never smoker FmHx Family History: No diabetes Physical Exam Vitals Vital Signs Date Temp Pulse Resp B/P (MAP) Pulse Ox O2 O2 Flow FiO2 Time Delivery Rate 11/05/18 68 18 133/88 100 Room Air 03:30 (103) 11/05/18 98.5 76 16 156/100 98 00:26 (118) Physical Exam Const: No acute distress Head: Atraumatic Eyes: Normal Conjunctiva ENT: Normal External Ears, Nose and Mouth. Neck: Full range of motion. No meningismus. Resp: Clear to auscultation bilaterally Cardio: Regular rate and rhythm, no murmurs. Left-sided chest wall tenderness to palpation. Abd: Soft, non tender, non distended. Normal bowel sounds Skin: No petechiae or rashes Back: No midline or flank tenderness Ext: No cyanosis, or edema Neur: Awake and alert Psych: Normal Mood and Affect Result Diagram: 11/05/18 0245 11/05/18 0245 Results 24 hrs Laboratory Tests Test 11/05/18 02:45 White Blood Count 5.6 10^3/ul Red Blood Count 5.93 10^6/ul Hemoglobin 15.4 g/dl Hematocrit 47.4 % Mean Corpuscular Volume 79.9 fl Mean Corpuscular Hemoglobin 26.0 pg Mean Corpuscular Hemoglobin Concent 32.5 g/dl Red Cell Distribution Width 12.8 % Platelet Count 308 10^3/UL Mean Platelet Volume 10.0 fl Immature Granulocytes % 0.400 % Neutrophils % 47.3 % Lymphocytes % 36.0 % Monocytes % 10.6 % Eosinophils % 5.2 % Basophils % 0.5 % Nucleated Red Blood Cells % 0.0 /100WBC Immature Granulocytes # 0.020 10^3/ul Neutrophils # 2.6 10^3/ul Lymphocytes # 2.0 10^3/ul Monocytes # 0.6 10^3/ul Eosinophils # 0.3 10^3/ul Basophils # 0.0 10^3/ul Nucleated Red Blood Cells # 0.0 10^3/ul Sodium Level 143 mmol/L Potassium Level 4.2 mmol/L Chloride Level 105 mmol/L Carbon Dioxide Level 28 mmol/L Anion Gap 10 Blood Urea Nitrogen 15 mg/dl Creatinine 0.93 mg/dl Est Glomerular Filtrat Rate mL/min > 60 mL/min Glucose Level 91 mg/dl Calcium Level 9.5 mg/dl Troponin I < 0.012 ng/ml Current Medications Medications Dose Sig/Lyle Start Time Status Last (Trade) Ordered Route PRN Stop Time Admin Dose Reason Admin Aspirin 325 mg ONCE STAT 11/05/18 DC 11/05/18 (Aspirin) PO 02:32 02:53 11/05/18 02:34 [place] [address] Radiology Main Line: [phone] DIAGNOSTIC IMAGING REPORT Patient: JAY MITTAL : 1985 Age: 33 Sex: M MR #: [id number] DOS: 11/05/18 0232 Ordering MD: STU DIAZ PA-C Location: E Room/Bed: PROCEDURE: Single view chest. CLINICAL INDICATION: Chest pain TECHNIQUE: Single view of the chest was obtained COMPARISON: None FINDINGS: There is no airspace consolidation or focal infiltrate. No pleural effusion or pneumothorax. Cardiac silhouette and mediastinal contours are unremarkable. Pulmonary vasculature appears normal. Regional bones are grossly unremarkable. IMPRESSION: No evidence of active cardiopulmonary disease. RPTAT: [facility]JBB Physician Raúl Date Time Electronically viewed and signed by Physician Raúl on 11/05/2018 05:07 xB/ CC: STU DIAZ PA-C [id number] Procedures/MDM 33-year-old male presents to the emergency department complaining of left-sided chest pain intermittently for the past several days. Patient is low risk for PE by Wells criteria and is PERC negative. Doubt ACS highly as patient has atypical presentation for ACS and nonischemic EKG. Patient's troponin was within normal limits. History and physical and other data not otherwise consistent with emergent process such as dissection, pneumonia, pneumothorax, esophageal rupture. Patient will be discharged home for close follow-up with primary care physician and web content editor for further testing. Questions and con cerns were addressed prior to discharge. EKG: Interpreted by ED physician. Rate/Rhythm: Normal Sinus Rhythm with a rate of [address] bpm. QRS, ST, T-waves: No changes consistent w/ acute ischemia Impression: No evidence of ischemia or arrhythmia Departure Diagnosis: Primary Impression: Chest wall pain Condition: Fair Patient Instructions: Chest Wall Pain, Costochondritis Additional Instructions: Muchas renee por [facility] para warner servicio. Esperamos que en warner visita a la ganesh de emergencia warner problema medico haya sido solucionado y que se sienta mucho mejor. Para estar seguros que warner mejoria sigue en proceso, le pedimos el favor de hacer eladio ariela de seguimiento medico con warner doctor primario en los proximos 2-4 chavez. Lleve con usted estos documentos y las medicinas recetadas. Si polo sintomas empeoran, NO SE ESPERE, por favor regrese a ganesh de emergencia INMEDIATAMENTE. En zuri que usted no tenga un mdico de atencin primaria: Llame al mdico o clnica comunitaria de referencia que aparece abajo moe las horas de consultorio para hacer eladio ariela para que le vean. CLINICAS: [facility] [phone] [address] [facility] [phone] [address] [place] [phone] [address] [facility] [phone] [facility] [phone] [address] [facility]. [phone] TSU BURRIS PA-C November 05, 2018 05:16
== END 2018-11-05 05:22 | disposition home or self-care (01) ==
LOC: FTE 00:20
DX: R07.89 Other chest pain (principal)
CPT/HCPCS: 36415; 71045; 80048; 84484; 85025; 93005; Z7502; Z7610

== ENCOUNTER 2019-01-03 10:51 | Emergency (ER) | payer MEDICAID ==
[~2019-01-03] VITALS: Ht 170.2 cm; Wt 73.4 kg
[~2019-01-03 10:51] MED LIST changes: +ACET325T33 PO; +ACET500C5 PO; +FAMO-96 PO; +LORA1TAB PO; +NAPR-985 PO
[2019-01-03 10:53] VITALS: BP 131/78; PULSE 67; RESP 18; Ht 170.2 cm; Wt 73.4 kg
--- NOTE | 2019-01-03 15:20 | ERD ---
ER Documentation Chief Complaint Chief Complaint epigastric pain with intermittent vomiting x 2 weeks HPI Patient is a 33-year-old male who presents to the ER for concerns of epigastric pain for last 20 days. Patient states he was seen by his primary care physician and diagnosed with H. pylori. He states he completed a course of 3 antibiotics for H. pylori however he continues to have occasional symptoms. Patient denies any fevers, chills, nausea, vomiting, diarrhea. Patient states occasionally he will have pain in the left upper chest as well for the last 2 weeks. This pain comes and goes. Pain is nonradiating. Patient denies any pleuritic pain. Patient denies any diaphoresis, headache, blurry vision, unilateral weakness, slurred speech or difficulty ambulating. 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 Patient denied any leg swelling, recent surgeries, travel. Patient also reports occasional "muscle twitches" throughout his body including in his arms and legs. Patient denies alcohol use. ROS All systems reviewed and are negative except as per history of present illness. Medications Home Meds Active Scripts Famotidine* (Pepcid*) 20 Mg Tablet, 20 MG PO DAILY for 30 Days, TAB Prov:RAMON SHEPARD PA-C 01/03/19 Acetaminophen* (Tylophen*) 500 Mg Capsule, 1 CAP PO Q6H PRN for PAIN AND OR ELEVATED TEMP, #20 CAP Prov:RAMON SHEPARD PA-C 01/03/19 Naproxen* (Naprosyn*) 500 Mg Tablet, 500 MG PO BID PRN for PAIN AND/OR INFLAMMATION, #30 TAB Prov:STU DIAZ PA-C 11/05/18 Hydrocodone Bit-Acetaminophen (Hydrocodone Bit-APAP) 5-325MG Tablet, 1 TAB PO Q6H PRN for .MOD PAIN 4-6 for 7 Days, #20 TAB Prov:DANIELLA JOSÉ MD 08/13/18 Allergies Allergies: Coded Allergies: No Known Allergies (Verified Allergy, Mild, 01/03/19) PMhx/Soc History of Surgery: No Anesthesia Reaction: No Hx Neurological Disorder: No Hx Respiratory Disorders: No Hx Cardiac Disorders: No Hx Psychiatric Problems: No Hx Miscellaneous Medical Probl: Yes (fatty liver) Hx Alcohol Use: No Hx Substance Use: No Hx Tobacco Use: No FmHx Family History: No diabetes Physical Exam Vitals Vital Signs Date Temp Pulse Resp B/P (MAP) Pulse Ox O2 O2 Flow FiO2 Time Delivery Rate 01/03/19 98.2 67 18 131/78 99 10:53 (95) Physical Exam GENERAL: Well-developed, well-nourished male. Appears in no acute distress. Speaking in full sentences. HEAD: Normocephalic, atraumatic. EYES: Pupils are equally reactive bilaterally. EOMs grossly intact. No conjunctival erythema. ENT: Moist mucous membranes. No uvula deviation. No kissing tonsils. NECK: Supple. No meningismus. Normal range of motion of the neck. LUNG: Clear to auscultation bilaterally. No rhonchi, wheezing, rales or coarse breath sounds. HEART: Regular rate and rhythm. No murmurs, rubs or gallops. Equal pulses in bilateral upper extremities. CHEST WALL: Tender to palpation of the left chest wall. Pain is reproducible. ABDOMEN: No scars, ecchymosis or rashes noted. Soft, and nondistended. Tender to palpation in the epigastric region. Positive bowel sounds in all four quadrants. No rebound tenderness, no guarding. (-) McBurney's point tenderness. No CVA tenderness. BACK: No midline tenderness. EXTREMITIES: Equal pulses bilaterally. No peripheral clubbing, cyanosis or edema. No unilateral leg swelling. NEUROLOGIC: Alert and oriented. Moving all four extremities without any difficulty. Normal speech. Steady gait. SKIN: Normal color. Warm and dry. No rashes or lesions. Procedures/MDM ED COURSE: The patient was stable throughout ED course. I kept the patient and/or family informed of laboratory and diagnostic imaging results throughout the ED course. EKG: Read by Dr. Coy, attending physician. EKG shows normal sinus rhythm at a rate of 58 bpm No STEMI. DIAGNOSTIC IMAGING: Read by radiologist. DIAGNOSTIC IMAGING REPORT Patient: JAY MITTAL : 1985 Age: 33 Sex: M MR #: [id number] DOS: 01/03/19 1126 Ordering MD: RAMON SHEPARD PA-C Location: [facility] Room/Bed: PROCEDURE: XR Chest PA CLINICAL INDICATION: PA TECHNIQUE: An PA radiograph of the chest was submitted. COMPARISON: 11/05/2018 FINDINGS: Cardiovascular: The cardiovascular silhouette appears unremarkable. Lung Gibson: The lung gibson appear clear with no nodule, alveolar infiltrate, or interstitial prominence evident. Pleural Spaces: There is no pneumothorax or pleural fluid accumulation evident. Osseous Structures: There is a mild dextroscoliotic curve to the thoracic spine again noted. Soft Tissues: The soft tissues appear unremarkable. IMPRESSION: 1. Stable chest without evidence of active cardiopulmonary disease. 2. Mild dextroscoliotic curve to the thoracic spine. Physician Christen Date Time Electronically viewed and signed by Physician Christen on 01/03/2019 12:30 RH/ CC: RAMON SHEPARD PA-C [id number] MEDICAL DECISION MAKING: This is a 33-year-old male with past medical history of H. pylori, presents to the ER for concerns of epigastric pain for last 20 days as well as occasional left-sided chest pain for the last 2 weeks. Patient recently completed course of advice for H. pylori. Patient states he continues have symptoms. Vital signs were reviewed. Patient was afebrile. Patient was not hypoxic. Cardiac exam was normal. Lung exam was normal. On exam, patient did have reproducible chest wall pain. EKG showed normal sinus rhythm. Reviewed by ED attending Dr. Coy, no STEMI. Chest x-ray is unremarkable. I do feel that patient has musculoskeletal pain which is contributing to his symptoms. Patient does work in construction. In regards to patient's epigastric pain, patient was advised to continue dietary changes. Patient was advised to start taking Pepcid daily. Patient will need to follow-up with a GI specialist on outpatient basis for endoscopy. Unable to rule out PUD. At this time the patient's presentation is most consistent with chest wall pain and epigastric pain. Low suspicion for ACS, arrhythmia, pericarditis, pneumothorax, pneumonia, pleural effusion, PE, pancreatitis, acute abdomen, esophageal perforation other acute processes. Patient was nontoxic, [id number] prior discharge. PRESCRIPTIONS: Pepcid DISCHARGE: At this time, patient is stable for discharge and outpatient management. I have instructed the patient to follow-up with his/her primary care physician in 1-2 days. If symptoms persist, patient may need to see a specialist for further examinations and testing. I have instructed the patient to promptly return to the ER at any time for any new or worsening symptoms including increased incr eased pain, fever, nausea, vomiting, numbness, weakness, diaphoresis or LOC. The patient and/or family expressed understanding of and agreement with this plan. All questions were answered. Home care instructions were provided. Disclaimer: Inadvertent spelling and grammatical errors are likely due to EHR/dictation software use and do not reflect on the overall quality of patient care. Also, please note that the electronic time recorded on this note does not necessarily reflect the actual time of the patient encounter. Departure Diagnosis: Primary Impression: Chest wall pain Additional Impression: H pylori ulcer Condition: Fair Patient Instructions: Chest Wall Pain, Costochondritis Referrals: [facility] YOU HAVE RECEIVED A MEDICAL SCREENING EXAM AND THE RESULTS INDICATE THAT YOU DO NOT HAVE A CONDITION THAT REQUIRES URGENT TREATMENT IN THE EMERGENCY DEPARTMENT. FURTHER EVALUATION AND TREATMENT OF YOUR CONDITION CAN WAIT UNTIL YOU ARE SEEN IN YOUR DOCTORS OFFICE WITHIN THE NEXT 1-2 DAYS. IT IS YOUR RESPONSIBILITY TO MAKE AN APPOINTMENT FOR FOLOW-UP CARE. IF YOU HAVE A PRIMARY DOCTOR --you should call your primary doctor and schedule an appointment IF YOU DO NOT HAVE A PRIMARY DOCTOR YOU CAN CALL OUR PHYSICIAN REFERRAL HOTLINE AT IF YOU CAN NOT AFFORD TO SEE A PHYSICIAN YOU CAN CHOSE FROM THE FOLLOWING [facility] [address] [facility]. [facility] [address] [facility] [address] [facility] [address] [facility]. [facility] [address] [facility]. [facility]. [address] [facility] YOU HAVE RECEIVED A MEDICAL SCREENING EXAM AND THE RESULTS INDICATE THAT YOU DO NOT HAVE A CONDITION THAT REQUIRES URGENT TREATMENT IN THE EMERGENCY DEPARTMENT. FURTHER EVALUATION AND TREATMENT OF YOUR CONDITION CAN WAIT UNTIL YOU ARE SEEN IN YOUR DOCTORS OFFICE WITHIN THE NEXT 1-2 DAYS. IT IS YOUR RESPONSIBILITY TO MAKE AN APPOINTMENT FOR FOLOW-UP CARE. IF YOU HAVE A PRIMARY DOCTOR --you should call your primary doctor and schedule and appointment IF YOU DO NOT HAVE A PRIMARY DOCTOR YOU CAN CALL OUR PHYSICIAN REFERRAL HOTLINE AT . IF YOU CAN NOT AFFORD TO SEE A PHYSICIAN YOU CAN CHOSE FROM THE FOLLOWING [facility] INSTITUTIONS: [facility] [address] [place] [address] [facility] [address] [place] [address] [facility] + [facility] [address] [place] [address] Additional Instructions: Follow-up with a GI specialist for an endoscopy on an outpatient basis. Unable to rule out peptic ulcer disease. Call your primary care doctor TOMORROW for an appointment during the next 1-2 days.See the doctor sooner or return here if your condition worsens before your appointment time. RAMON SHEPARD PA-C Jan 03, 2019 15:20
== END 2019-01-03 13:00 | disposition home or self-care (01) ==
LOC: FTE 10:51
DX: R07.89 Other chest pain (principal); B96.81 Helicobacter pylori [H. pylori] as the cause of diseases classified elsewhere
CPT/HCPCS: 71045; 93005; Z7502

== ENCOUNTER 2019-01-22 17:16 | Emergency (ER) | payer MEDICAID ==
[~2019-01-22] VITALS: Ht 165.1 cm; Wt 73.2 kg
[2019-01-22 17:21] VITALS: BP 163/99; PULSE 92; RESP 17; Ht 165.1 cm; Wt 73.2 kg
--- NOTE | 2019-01-22 17:36 | ERD ---
ER Documentation Chief Complaint Chief Complaint CHEST PRESSURE, FEELS LIKE SOMETHING IS "STUCK" ON CHEST, ON AND OFF HPI 34-year-old male, with history of multiple visits to the emergency department for chest pain, presents the emergency department, complaining of chest wall pain that started 3 days ago, the pain is intermittent, sharp, 5/10. The pain is reproducible by palpation and worsened by left arm movements. the patient seems very anxious and wants to know if he has diabetes. Otherwise, no shortness of breath, no history of trauma, no distal weakness, no palpitations. Medical records from previous visits were reviewed. ROS All systems reviewed and are negative except as per history of present illness. Medications Home Meds Active Scripts Famotidine* (Pepcid*) 20 Mg Tablet, 20 MG PO DAILY for 30 Days, TAB Prov:RAMON SHEPARD PA-C 01/03/19 Acetaminophen* (Tylophen*) 500 Mg Capsule, 1 CAP PO Q6H PRN for PAIN AND OR ELEVATED TEMP, #20 CAP Prov:RAMON SHEPARD PA-C 01/03/19 Naproxen* (Naprosyn*) 500 Mg Tablet, 500 MG PO BID PRN for PAIN AND/OR INFLAMMATION, #30 TAB Prov:STU DIAZ PA-C 11/05/18 Hydrocodone Bit-Acetaminophen (Hydrocodone Bit-APAP) 5-325MG Tablet, 1 TAB PO Q6H PRN for .MOD PAIN 4-6 for 7 Days, #20 TAB Prov:DANIELLA JOSÉ MD 08/13/18 Allergies Allergies: Coded Allergies: No Known Allergies (Verified Allergy, Mild, 01/22/19) PMhx/Soc History of Surgery: No Anesthesia Reaction: No Hx Neurological Disorder: No Hx Respiratory Disorders: No Hx Cardiac Disorders: No Hx Psychiatric Problems: No Hx Miscellaneous Medical Probl: Yes (fatty liver) Hx Alcohol Use: No Hx Substance Use: No Hx Tobacco Use: No FmHx Family History: No diabetes, No coronary disease Physical Exam Vitals Vital Signs Date Temp Pulse Resp B/P (MAP) Pulse Ox O2 O2 Flow FiO2 Time Delivery Rate 01/22/19 97.3 92 17 163/99 99 17:21 (120) Physical Exam Const: No acute distress Head: Atraumatic Eyes: Normal Conjunctiva ENT: Normal External Ears, Nose and Mouth. Neck: Full range of motion. No meningismus. Resp: Clear to auscultation bilaterally Cardio: Regular rate and rhythm, no murmurs Abd: Soft, non tender, non distended. Normal bowel sounds Skin: No petechiae or rashes Back: No midline or flank tenderness Ext: No cyanosis, or edema Neur: Awake and alert Psych: Normal Mood and Affect Result Diagram: 01/22/19 1754 01/22/19 175 Results 24 hrs Laboratory Tests Test 01/22/19 17:54 White Blood Count 6.1 10^3/ul Red Blood Count 6.11 10^6/ul Hemoglobin 15.9 g/dl Hematocrit 49.9 % Mean Corpuscular Volume 81.7 fl Mean Corpuscular Hemoglobin 26.0 pg Mean Corpuscular Hemoglobin Concent 31.9 g/dl Red Cell Distribution Width 12.7 % Platelet Count 305 10^3/UL Mean Platelet Volume 10.4 fl Immature Granulocytes % 0.300 % Neutrophils % 57.1 % Lymphocytes % 30.7 % Monocytes % 8.2 % Eosinophils % 2.9 % Basophils % 0.8 % Nucleated Red Blood Cells % 0.0 /100WBC Immature Granulocytes # 0.020 10^3/ul Neutrophils # 3.5 10^3/ul Lymphocytes # 1.9 10^3/ul Monocytes # 0.5 10^3/ul Eosinophils # 0.2 10^3/ul Basophils # 0.1 10^3/ul Nucleated Red Blood Cells # 0.0 10^3/ul Sodium Level 140 mmol/L Potassium Level 3.5 mmol/L Chloride Level 102 mmol/L Carbon Dioxide Level 28 mmol/L Anion Gap 10 Blood Urea Nitrogen 11 mg/dl Creatinine 0.91 mg/dl Est Glomerular Filtrat Rate mL/min > 60 mL/min Glucose Level 123 mg/dl Calcium Level 9.6 mg/dl Troponin I < 0.012 ng/ml Current Medications Medications Dose Sig/Lyle Start Time Status Last (Trade) Ordered Route PRN Stop Time Admin Dose Reason Admin Lorazepam 1 mg ONCE ONCE 01/22/19 DC 01/22/19 (Ativan) PO 18:00 17:50 01/22/19 18:01 650 mg ONCE ONCE 01/22/19 DC 01/22/19 Acetaminophen PO 18:00 17:50 (Tylenol 01/22/19 18:01 Tab) EKG read by me: Rate/Rhythm: Regular rate and rhythm at a rate of 84 Intervals: Normal No acute ST changes. No T wave inversion Impression: No evidence of acute ischemia or arrhythmia Procedures/MDM Vital signs stable, Physical exam unremarkable, neurovascular exam intact. Differential diagnosis include but not limited to: Depression, anxiety, migraine, thyroid disease, electrolyte imbalance. Low suspicion for acute coronary event, aortic dissection, CVA. Pertinent Data: 12 Lead ECG: Sinus rhythm, no ST changes, no acute T wave abnormalities. Physical examination and clinical presentation consistent most likely with anxiety. During the ED course the patient remained stable, no new complaints. The patient received treatment with lorazepam presenting overall improvement of the symptoms . Treatment options, results and clinical impression discussed with patient who agrees with management. The patient is stable to be treated outpatient and will be discharged home with a Rx for lorazepam, some side effects of prescribed medications (headache, rash, nausea, vomiting, diarrhea, drowsiness, habituation, bleeding, hypertension, interactions with other medications) were reviewed. The patient was instructed to follow up with the primary care provider in the next 48h. If symptoms persist, worsen or new symptoms develop, then patient should return to the ED immediately. Instructions explained and given directly by me to the patient with acknowledgment and demonstrated understanding. Disclaimer: Inadvertent spelling and grammatical errors are likely due to EHR/dictation software use and do not reflect on the overall quality of patient care. Also, please note that the electronic time recorded on this note does not necessarily reflect the actual time of the patient encounter. Departure Diagnosis: Primary Impression: Atypical chest pain Additional Impression: Anxiety Condition: Stable ANTONIETTA ARANDA MD Jan 22, 2019 17:36
[2019-01-22] MEDS ORDERED: ACETAMINOPHEN 325 MG TAB PO ONE (18:00)
[2019-01-22] MEDS ORDERED: LORAZEPAM 1 MG TAB PO ONE (18:00)
== END 2019-01-22 19:23 | disposition home or self-care (01) ==
LOC: FTE 17:16
DX: F41.9 Anxiety disorder, unspecified (principal)
CPT/HCPCS: 80048; 84484; 85025; Z7610; 36415; 93005